=== PATIENT | male | born 1970 | race Asian ===

== ENCOUNTER 2016-11-11 10:19 | Emergency (ER) | payer SELFPAY ==
[2016-11-11 11:55] VITALS: BP 134/80
== END 2016-11-11 11:55 | disposition home or self-care (01) ==
LOC: ED 10:19
DX: S96.912A Strain of unspecified muscle and tendon at ankle and foot level, left foot, initial encounter (principal); X58.XXXA Exposure to other specified factors, initial encounter; Y93.89 Activity, other specified; Y99.8 Other external cause status; Y92.89 Other specified places as the place of occurrence of the external cause
CPT/HCPCS: Q0092

== ENCOUNTER 2019-10-17 11:30 | Emergency (ER) | payer SELFPAY ==
[~2019-10-17] VITALS: Ht 162.6 cm; Wt 72.6 kg
[2019-10-17 11:39] VITALS: Ht 162.6 cm; Wt 72.6 kg
[2019-10-17 13:44] VITALS: BP 112/68
== END 2019-10-17 13:44 | disposition home or self-care (01) ==
LOC: ED 11:30
DX: K59.00 Constipation, unspecified (principal); K21.9 Gastro-esophageal reflux disease without esophagitis; K62.89 Other specified diseases of anus and rectum
CPT/HCPCS: J1885